=== PATIENT | male | born 1975 | race Hispanic/Latino ===

== ENCOUNTER 2018-03-02 12:10 | Emergency (ER) | payer SELFPAY | END 2018-03-02 14:36 | disposition home or self-care (01) | LOC: ERS 12:10 | DX: M54.5 Low back pain (principal); M10.9 Gout, unspecified; X50.1XXA Overexertion from prolonged static or awkward postures, initial encounter | CPT/HCPCS: 99283 ==

== ENCOUNTER 2019-02-21 07:59 | Emergency (ER) | payer SELFPAY | END 2019-02-21 09:21 | disposition home or self-care (01) | LOC: ERS 07:59 | DX: M10.9 Gout, unspecified (principal) | CPT/HCPCS: 99283 ==